=== PATIENT | female | born 1970 | race Caucasian/White ===

== ENCOUNTER 2016-11-13 15:50 | Emergency (ER) | payer OTHER ==
[~2016-11-13] VITALS: Ht 160 cm; Wt 99.8 kg
[2016-11-13] MEDS ORDERED: IV NORMAL SALINE 1000 ML BAG IV ONE (16:00)
[2016-11-13] MEDS ORDERED: HYDROMORPHONE 1 MG/1 ML DISP.SYRIN IV ONE ×2 (16:00→17:15)
[2016-11-13] MEDS ORDERED: ONDANSETRON 4 MG/2 ML VIAL IV ONE (16:00)
[2016-11-13] MEDS ORDERED: PANT20TA2 PO (16:02)
[2016-11-13] MEDS ORDERED: OMEP20CA10 PO (16:02)
[2016-11-13] MEDS ORDERED: ONDA4TAB5 PO (16:02)
[2016-11-13] MEDS ORDERED: VENL75TA4 PO (16:02)
[2016-11-13] MEDS ORDERED: HYDROMORPHONE 2 MG/1 ML DISP.SYRIN ONE (16:13)
[2016-11-13] MEDS ORDERED: ONDANSETRON 4 MG/2 ML VIAL ONE ×2 (16:14→17:27)
[2016-11-13 16:18] LABS: BASOPHILS # (AUTO) 0.1 K/uL (0.0-8.0); BASOPHILS % (AUTO) 1.4 % (0.0-2.0); EOSINOPHILS # (AUTO) 0.1 K/uL (0.0-0.7); HEMATOCRIT 31.5 % (37-47); HEMOGLOBIN 9.7 G/DL (12.0-16.0); LYMPHOCYTES # (AUTO) 2.3 K/UL (0.8-4.8); LYMPHOCYTES % (AUTO) 33.4 % (20.5-51.5); MEAN CORPUSCULAR HEMOGLOBIN 22.2 UUG (27.0-31.0); MEAN CORPUSCULAR HGB CONC 31 g/dL (32.0-37.0); MEAN CORPUSCULAR VOLUME 72.4 FL (81.0-99.0); MONOCYTES # (AUTO) 0.4 K/UL (0.1-1.30); MONOCYTES % (AUTO) 6.5 % (0.0-11.0); NEUTROPHILS % (AUTO) 56.7 % (38.5-71.5); PLATELET COUNT (AUTO) 262 K/UL (150-450); RED BLOOD CELL COUNT(AUTO) 4.36 MIL/UL (4.2-5.4); WHITE BLOOD COUNT (AUTO) 6.9 K/UL (4.0-11.2)
[2016-11-13 17:02] LABS: BILIRUBIN,TOTAL 0.6 mg/dL (0.1-1.0); POTASSIUM 3.2 mmol/L (3.5-5.1)
[2016-11-13 17:03] LABS: TOTAL PROTEIN, SERUM 7.7 g/dL (6.4-8.2)
[2016-11-13 17:05] LABS: BILIRUBIN,DIRECT 0.1 mg/dL (0.0-0.2)
[2016-11-13] MEDS ORDERED: ONDANSETRON IV *ER 4 MG/2 ML VIAL IV ONE (17:15)
[2016-11-13 17:26] VITALS: BP 116/78
[2016-11-13] MEDS ORDERED: HYDROMORPHONE 1 MG/1 ML DISP.SYRIN ONE (17:27)
--- NOTE | 2016-11-13 17:27 | NUR ---
IV removed. Catheter intact and site benign. Pressure and 4x4 gauze applied to site. No bleeding noted.
--- NOTE | 2016-11-13 17:27 | NUR ---
Patient discharged to home in stable conditon. Written and verbal after care instructions given. Patient verbalizes understanding of instructions.
[2016-11-13 17:58] LABS: BAND % (MANUAL) 2 % (0-10); LYMPHOCYTES % (MANUAL) 39 % (20-40); MONOCYTES % (MANUAL) 3 % (2-10); NEUTROPHILS % (MANUAL) 56 % (42-75)
== END 2016-11-13 17:27 | disposition home or self-care (01) ==
LOC: ER 15:50
DX: R10.9 Unspecified abdominal pain (principal); Z90.49 Acquired absence of other specified parts of digestive tract; Z88.0 Allergy status to penicillin; K21.9 Gastro-esophageal reflux disease without esophagitis; Z88.6 Allergy status to analgesic agent; Z88.8 Allergy status to other drugs, medicaments and biological substances
CPT/HCPCS: 80048; 80076; 83690; 84703; 85025; 96361; 96374 ×2; 96375; 96376; 99284; A4663; J1170 ×2; J2405 ×2

== ENCOUNTER 2018-04-12 14:07 | Inpatient (IN) | payer MEDICAID, OTHER ==
[~2018-04-12] VITALS: Ht 160 cm; Wt 95.3 kg
[~2018-04-12 14:07] MED LIST: OMEP20CA10 PO; ONDA4TAB5 PO; PANT20TA2 PO; VENL75TA4 PO
[2018-04-12] MEDS ORDERED: ONDANSETRON 4 MG/2 ML VIAL IV ONE (14:30)
[2018-04-12] MEDS ORDERED: IV NORMAL SALINE 1000 ML BAG IV ONE (14:30)
[2018-04-12] MEDS ORDERED: HYDROMORPHONE 1 MG/1 ML DISP.SYRIN IV ONE (14:30)
[2018-04-12] MEDS ORDERED: HYDROMORPHONE 2 MG/1 ML DISP.SYRIN ONE (14:46)
[2018-04-12] MEDS ORDERED: ONDANSETRON 4 MG/2 ML VIAL ONE (14:46)
[2018-04-12 14:56] LABS: BASOPHILS # (AUTO) 0.2 K/uL (0.0-8.0); BASOPHILS % (AUTO) 1.7 % (0.0-2.0); EOSINOPHILS # (AUTO) 0.2 K/uL (0.0-0.7); EOSINOPHILS % (AUTO) 1.8 % (0.0-7.0); HEMATOCRIT 29.6 % (31.2-41.9); HEMOGLOBIN 9.1 g/dL (10.9-14.3); LYMPHOCYTES # (AUTO) 2.4 K/uL (20.0-40.0); LYMPHOCYTES % (AUTO) 24.5 % (20.5-51.5); MEAN CORPUSCULAR HEMOGLOBIN 20.9 uug (24.7-32.8); MEAN CORPUSCULAR HGB CONC 31 g/dL (32.3-35.6); MEAN CORPUSCULAR VOLUME 67.6 fL (75.5-95.3); MONOCYTES # (AUTO) 0.4 K/uL (2.0-10.0); MONOCYTES % (AUTO) 4.5 % (0.0-11.0); NEUTROPHILS # (AUTO) 6.6 K/uL (1.8-8.9); NEUTROPHILS % (AUTO) 67.5 % (38.5-71.5); PLATELET COUNT (AUTO) 248 K/uL (179-408); RED BLOOD CELL COUNT(AUTO) 4.38 MIL/uL (3.63-4.92); WHITE BLOOD COUNT (AUTO) 9.7 K/uL (3.8-11.8)
[2018-04-12 14:57] LABS: CREATININE 0.9 mg/dL (0.6-1.3); POTASSIUM 3.7 mmol/L (3.5-5.1)
[2018-04-12 15:03] LABS: BILIRUBIN,DIRECT 0.1 mg/dL (0.0-0.2); BILIRUBIN,TOTAL 0.3 mg/dL (0.2-1.0); TOTAL PROTEIN, SERUM 8.1 g/dL (6.4-8.2)
[2018-04-12] MEDS ORDERED: LORA2TAB95 PO (16:06)
--- NOTE | 2018-04-12 16:27 | NUR ---
pt transfered to floor in stable condition.pt pain down to tolealable level at this point. pt not requesting pain med.
--- NOTE | 2018-04-12 16:30 | NUR ---
PATIENT BROUGHT TO THE 2ND FLOOR FROM ER. A/O*3, COOPERATIVE. FEW MIN LATER PATIENT THROW UP. IV INTACT R HAND 22 G. SAFETY REINFORCED.
[2018-04-12 16:40] VITALS: BP 105/57
[2018-04-12] MEDS ORDERED: ACETAMINOPHEN 325 MG TABLET PO PRN (17:15)
[2018-04-12] MEDS ORDERED: IV LACTATED RINGERS SOLUTION 1,000 ML IV SCH (17:15)
[2018-04-12] MEDS ORDERED: MAGNESIUM HYDROXIDE 30 ML LIQUID UDC PO PRN (17:15)
[2018-04-12] MEDS ORDERED: Z GUARD REMEDY PASTE 57 GM TUBE TOP PRN (17:15)
[2018-04-12] MEDS: DICYCLOMINE HCL 10 MG CAPSULE PO SCH (17:55)
[2018-04-12] MEDS: CULTURELLE CAPSULE PO SCH ×2 (17:55→21:54)
[2018-04-12] MEDS: HYDROMORPHONE 1 MG/1 ML DISP.SYRIN IV PRN ×2 (18:22→23:32)
--- NOTE | 2018-04-12 18:33 | NUR ---
END OF SHIFT PATIENT A/O *3, COOPERATIVE WITH TREATMENT, NO NASEA AFTER 1630 PM, COMPLAINED OF HEADACHE--> TYLENOL 650 WAS GIVEN AND EFFECTIVE, COMPLAINED OF PAIN 10/10 DILADED WAS GIVEN AND EFFECTIVE. NO DISTRESS AT THE MOMENT. SAFETY REINFORCED.
--- NOTE | 2018-04-12 19:45 | NUR ---
PATIENT IS AWAKE IN BED, AAOX4 DENIES PAIN/ NAUSEA/ANY DISTRESS ON ASSESSMENT. SAFETY MEASURES IN PLACE, CALL LIGHT LEFT WITHIN PATIENT'S REACH
[2018-04-12] MEDS: ONDANSETRON 4 MG/2 ML VIAL IV PRN (19:54)
[2018-04-12 20:00] VITALS: BP 101/52
[2018-04-13] MEDS: DICYCLOMINE HCL 10 MG CAPSULE PO SCH ×4 (00:09→18:36)
[2018-04-13 04:10] LABS: *BILIRUBIN,URIN NEGATIVE (NEGATIVE); *BLOOD, URINE NEGATIVE (NEGATIVE); *COLOR,URINE YELLOW (YELLOW); *KETONES,URINE TRACE (NEGATIVE); *UROBILINOGEN,URINE 0.2 E.U./dl (NORMAL); LEUKOCYTE ESTERASE ,URINE NEGATIVE (NEGATIVE); NITRITE, URINE NEGATIVE (NEGATIVE); UGLUCOSE NEGATIVE (NEGATIVE)
[2018-04-13 04:18] LABS: *CLARITY,URINE HAZY (CLEAR)
[2018-04-13] MEDS: HYDROMORPHONE 1 MG/1 ML DISP.SYRIN IV PRN ×5 (04:23→21:45)
[2018-04-13 04:24] LABS: RBC,URINE 0-3 /HPF (0-3); WBC,URINE 0-3 /HPF (0-3)
[2018-04-13 04:25] LABS: BACTERIA,URINE MODERATE /HPF (NONE SEEN); MUCUS,URINE MODERATE /LPF (0-FEW); SQUAMOUS EPITHELIAL CELL,UR MANY /HPF (NONE SEEN)
[2018-04-13 04:37] LABS: *AMPHETAMINE, URINE NEGATIVE (NEGATIVE); *BARBITURATE, URINE NEGATIVE (NEGATIVE); *CANNABINOID, URINE POSITIVE (NEGATIVE); *COCCAINE, URINE NEGATIVE (NEGATIVE); *OPIATE, URINE POSITIVE (NEGATIVE); *PHENCYCLIDINE SCREEN,URINE NEGATIVE (NEGATIVE)
[2018-04-13 04:45] VITALS: BP 137/84
--- NOTE | 2018-04-13 06:07 | NUR ---
PATIENT SLEPT WELL ON THIS SHIFT, PAIN MEDS GIVEN REQUESTED BY PATIENT. NO C/O PAIN OR ANY DISTRESS AT THIS TIME. NO FURTHER CHANGES IN STATUS
[2018-04-13 06:35] LABS: CREATININE 0.8 mg/dL (0.6-1.3); MAGNESIUM 1.6 mg/dL (1.8-2.4); PHOSPHOROUS 3.8 mg/dL (2.5-4.9); POTASSIUM 3.9 mmol/L (3.5-5.1)
[2018-04-13 06:53] LABS: BASOPHILS % (AUTO) 0.6 % (0.0-2.0); EOSINOPHILS # (AUTO) 0.2 K/uL (0.0-0.7); EOSINOPHILS % (AUTO) 2.1 % (0.0-7.0); HEMATOCRIT 25.8 % (31.2-41.9); LYMPHOCYTES # (AUTO) 2.8 K/uL (20.0-40.0); LYMPHOCYTES % (AUTO) 36.8 % (20.5-51.5); MEAN CORPUSCULAR HGB CONC 31 g/dL (32.3-35.6); MEAN CORPUSCULAR VOLUME 67.8 fL (75.5-95.3); MONOCYTES # (AUTO) 0.5 K/uL (2.0-10.0); NEUTROPHILS # (AUTO) 4.1 K/uL (1.8-8.9); NEUTROPHILS % (AUTO) 54.5 % (38.5-71.5); PLATELET COUNT (AUTO) 201 K/uL (179-408); WHITE BLOOD COUNT (AUTO) 7.6 K/uL (3.8-11.8)
--- NOTE | 2018-04-13 07:00 | NUR ---
Patient is resting in bed, no distress at the moment, patient complained of pain 3-4 but manageable at the moment. IV R hand intact saline lock. Safety reinforced.
[2018-04-13 07:48] LABS: THYROID STIMULATING HORMONE 1.436 mIU/mL (0.358-3.740)
[2018-04-13 08:15] LABS: NEUTROPHILS % (MANUAL) 55 % (42-75)
[2018-04-13 08:16] LABS: LYMPHOCYTES % (MANUAL) 41 % (20-40); MONOCYTES % (MANUAL) 4 % (2-10)
[2018-04-13] MEDS: PANTOPRAZOLE SODIUM 40 MG VIAL IV SCH ×2 (08:32→20:14)
[2018-04-13] MEDS: CULTURELLE CAPSULE PO SCH ×2 (08:32→20:14)
[2018-04-13] MEDS: ONDANSETRON 4 MG/2 ML VIAL IV PRN (09:34)
[2018-04-13] MEDS: MAGNESIUM SULFATE/D5W 100 ML IV SCH ×2 (11:17→12:45)
[2018-04-13 11:20] VITALS: BP 118/66
[2018-04-13 15:11] VITALS: BP 104/60
--- NOTE | 2018-04-13 19:16 | NUR ---
eND OF SHIFT Patient is resting walking around the unit, no distress at the moment, patient complained of pain and medications were given per orders. Mg was replaced with 2 bags today. IV R hand infiltrated and was restarted on the RAC. Safety reinforced.
--- NOTE | 2018-04-13 19:20 | NUR ---
RECEIVED PT AWAKE, ALERT , AND ORIENTEDX4. PT SHOWS NO SIGNS OF DISTRESS. IV INTACT. CALL LIGHT WITHIN REACH. SAFETY AND COMFORT PROVIDED. WILL CONTINUE TO MONITOR.
[2018-04-13 20:02] VITALS: BP 116/78
[2018-04-13] MEDS: AMITRIPTYLINE HCL 50 MG TABLET PO SCH (20:22)
--- NOTE | 2018-04-13 22:00 | NUR ---
AT 2145H PT WAS GIVEN DILAUDID FOR 1010 PAIN SCALE OF HER ABDOMEN. PT TOLERATED IT WELL. SAFETY AND COMFORT PROVIDED. WILL CONTINUE TO MONITOR.
[2018-04-14] MEDS: DICYCLOMINE HCL 10 MG CAPSULE PO SCH ×5 (00:03→23:10)
[2018-04-14] MEDS: HYDROMORPHONE 1 MG/1 ML DISP.SYRIN IV PRN ×6 (02:20→23:10)
[2018-04-14] MEDS: ONDANSETRON 4 MG/2 ML VIAL IV PRN ×2 (02:20→20:05)
[2018-04-14 04:48] VITALS: BP 95/52
--- NOTE | 2018-04-14 06:22 | NUR ---
PT SLEPT THROUGHOUT THE SHIFT. PT SHOWS NO SIGNS OF ACUTE DISTRESS. PT AFEBRILE. VITAL SIGNS WITHIN NORMAL LIMIT. PRESCRIBED MEDICATION GIVEN AND PT TOLERATED IT WELL. PT GIVEN DILAUDID AT 2215H, 0220H AND 0551H. PT TOLERATED IT WELL. SAFETY AND COMFORT PROVIDED. WILL ENDORSE ACCORDINGLY TO INCOMING NURSE FOR CONTINUITY OF CARE.
[2018-04-14 06:44] LABS: CREATININE 0.8 mg/dL (0.6-1.3); MAGNESIUM 2.1 mg/dL (1.8-2.4); PHOSPHOROUS 4.2 mg/dL (2.5-4.9); POTASSIUM 3.5 mmol/L (3.5-5.1)
--- NOTE | 2018-04-14 07:00 | NUR ---
RECEIVED PT AWAKE, A/OX4. PT SHOWS NO SIGNS OF DISTRESS. IV INTACT. CALL LIGHT WITHIN REACH. SAFETY AND COMFORT PROVIDED. WILL CONTINUE TO MONITOR.
[2018-04-14 07:04] LABS: BASOPHILS % (AUTO) 0.6 % (0.0-2.0); EOSINOPHILS # (AUTO) 0.3 K/uL (0.0-0.7); EOSINOPHILS % (AUTO) 3.4 % (0.0-7.0); HEMATOCRIT 25.7 % (31.2-41.9); LYMPHOCYTES # (AUTO) 3.5 K/uL (20.0-40.0); LYMPHOCYTES % (AUTO) 46.3 % (20.5-51.5); MEAN CORPUSCULAR HEMOGLOBIN 21.1 uug (24.7-32.8); MEAN CORPUSCULAR HGB CONC 31 g/dL (32.3-35.6); MONOCYTES # (AUTO) 0.5 K/uL (2.0-10.0); NEUTROPHILS # (AUTO) 3.3 K/uL (1.8-8.9); NEUTROPHILS % (AUTO) 42.7 % (38.5-71.5); PLATELET COUNT (AUTO) 205 K/uL (179-408); RED BLOOD CELL COUNT(AUTO) 3.78 MIL/uL (3.63-4.92); WHITE BLOOD COUNT (AUTO) 7.6 K/uL (3.8-11.8)
[2018-04-14] MEDS: PANTOPRAZOLE SODIUM 40 MG VIAL IV SCH (08:14)
[2018-04-14] MEDS: CULTURELLE CAPSULE PO SCH ×2 (08:14→20:36)
[2018-04-14 10:43] LABS: BASOPHILS % (MANUAL) 1 % (0-2); EOSINOPHILS % (MANUAL) 7 % (0-8); LYMPHOCYTES % (MANUAL) 46 % (20-40); MONOCYTES % (MANUAL) 4 % (2-10); NEUTROPHILS % (MANUAL) 42 % (42-75)
[2018-04-14 11:21] LABS: *BILIRUBIN,URIN NEGATIVE (NEGATIVE); *BLOOD, URINE Trace-intact (NEGATIVE); *CLARITY,URINE SLIGHTLY CLOUDY (CLEAR); *COLOR,URINE YELLOW (YELLOW); *KETONES,URINE 1+ (NEGATIVE); *UROBILINOGEN,URINE 0.2 E.U./dl (NORMAL); LEUKOCYTE ESTERASE ,URINE NEGATIVE (NEGATIVE); NITRITE, URINE NEGATIVE (NEGATIVE); UGLUCOSE NEGATIVE (NEGATIVE)
[2018-04-14 11:43] LABS: BACTERIA,URINE MODERATE /HPF (NONE SEEN); SQUAMOUS EPITHELIAL CELL,UR MODERATE /HPF (NONE SEEN)
[2018-04-14 11:44] LABS: MUCUS,URINE MANY /LPF (0-FEW)
[2018-04-14 11:50] VITALS: BP 106/60
--- NOTE | 2018-04-14 12:50 | NUR ---
MIDLINE INSERTION BY RN NO PAIN, NO CONCERNS, NO BLEEDING, FLUSHED EASY.
[2018-04-14 16:04] VITALS: BP 140/77
[2018-04-14] MEDS: PANTOPRAZOLE SODIUM 40 MG TABLET.DR PO SCH (17:08)
--- NOTE | 2018-04-14 18:49 | NUR ---
END OF SHIFT PATIENT AWAKE, A/OX4. PATIENT SHOWS NO SIGNS OF DISTRESS. MIDLINE IS INTACT. PATIENT RECEIVED DILADED FOR PAIN NEEDED, WAS EFFECTIVE. CONSENT IS SIGNED FOR TOMORROW MRI, NPO AFTER MIDNIGHT IS ORDERED EXCEPT MEDS. CALL LIGHT WITHIN REACH. SAFETY AND COMFORT PROVIDED. WILL CONTINUE TO MONITOR.
[2018-04-14 19:59] VITALS: BP 101/66
[2018-04-14] MEDS: AMITRIPTYLINE HCL 50 MG TABLET PO SCH (20:36)
[2018-04-14] MEDS: ATORVASTATIN 10 MG TABLET PO SCH (20:36)
[2018-04-14] MEDS: LORAZEPAM 2 MG/1 ML VIAL IV PRN (23:10)
[2018-04-15] MEDS: HYDROMORPHONE 1 MG/1 ML DISP.SYRIN IV PRN ×7 (02:08→23:19)
[2018-04-15 04:29] VITALS: BP 110/76
[2018-04-15] MEDS: DICYCLOMINE HCL 10 MG CAPSULE PO SCH ×3 (05:51→18:37)
[2018-04-15] MEDS: PANTOPRAZOLE SODIUM 40 MG TABLET.DR PO SCH ×2 (05:51→17:00)
[2018-04-15 07:12] LABS: BASOPHILS # (AUTO) 0.2 K/uL (0.0-8.0); BASOPHILS % (AUTO) 2.5 % (0.0-2.0); EOSINOPHILS # (AUTO) 0.4 K/uL (0.0-0.7); EOSINOPHILS % (AUTO) 5.7 % (0.0-7.0); HEMATOCRIT 26.3 % (31.2-41.9); HEMOGLOBIN 8.1 g/dL (10.9-14.3); LYMPHOCYTES # (AUTO) 3.5 K/uL (20.0-40.0); LYMPHOCYTES % (AUTO) 46.1 % (20.5-51.5); MEAN CORPUSCULAR HEMOGLOBIN 20.9 uug (24.7-32.8); MEAN CORPUSCULAR HGB CONC 31 g/dL (32.3-35.6); MEAN CORPUSCULAR VOLUME 67.8 fL (75.5-95.3); MONOCYTES # (AUTO) 0.4 K/uL (2.0-10.0); MONOCYTES % (AUTO) 5.4 % (0.0-11.0); NEUTROPHILS # (AUTO) 3.1 K/uL (1.8-8.9); NEUTROPHILS % (AUTO) 40.3 % (38.5-71.5); PLATELET COUNT (AUTO) 200 K/uL (179-408); RED BLOOD CELL COUNT(AUTO) 3.87 MIL/uL (3.63-4.92); WHITE BLOOD COUNT (AUTO) 7.6 K/uL (3.8-11.8)
[2018-04-15] MEDS: CULTURELLE CAPSULE PO SCH ×2 (08:18→21:46)
[2018-04-15] MEDS: LORAZEPAM 2 MG/1 ML VIAL IV PRN (08:18)
[2018-04-15 08:30] LABS: CREATININE 0.9 mg/dL (0.6-1.3); MAGNESIUM 1.8 mg/dL (1.8-2.4); PHOSPHOROUS 4.7 mg/dL (2.5-4.9)
--- NOTE | 2018-04-15 08:44 | NUR ---
PATIENT IS GOING TO MRI BY AMBULANCE, ATIVAN*1 WAS GIVEN PRIOR PER REQUEST, VS BP118/64, HR 70, RR18, O2100. A/O *4, NO DISTRESS.
--- NOTE | 2018-04-15 10:15 | NUR ---
PATIENT IS BACK FROM MRI, NO DISTRESS, COMPLAINING OF ABD PAIN WILL TREAT PER ORDERS, VS:112/79, HR 95, T 98.2 , RR18, O2 100. SAFETY REINFORCED.
[2018-04-15] MEDS ORDERED: GADODIAMIDE 5 MMOL/10 ML VIAL ONE (10:17)
[2018-04-15 10:44] LABS: EOSINOPHILS % (MANUAL) 1 % (0-8); LYMPHOCYTES % (MANUAL) 59 % (20-40); MONOCYTES % (MANUAL) 2 % (2-10); NEUTROPHILS % (MANUAL) 38 % (42-75)
[2018-04-15 11:55] VITALS: BP 112/69
[2018-04-15 15:10] VITALS: BP 91/45
--- NOTE | 2018-04-15 19:00 | NUR ---
PATIENT IS RESTING IN BE AT THE MOMENT, NO DISTRESS, A/O*4, COOPERATIVE WITH TREATMENT, RECEIVED DILAUDID FOR PAIN AND WAS EFFECTIVE, WAS SEEN BY GI SPECIALIST, ALSO SURGEON WANTED TO SEE HER THIS AM BUT PATIENT LEFT FOR MRI. ORDERS CARED OUT THROUGH OUT THE SHIFT, SAFETY REINFORCED.
--- NOTE | 2018-04-15 19:45 | NUR ---
RECEIVED PATIENT IN BED, NO SOB NO CHEST PAIN, CONT ON PAIN MANAGEMENT OF ABDOMINAL PAIN. PATIENT SEEN BY GI MD, WITH NO FURTHER ORDER AT THIS TIME. PATIENT TOLERATE DIET, VOIDING, AND MOVING HER BOWEL. CONT TO MONITOR.
[2018-04-15] MEDS: ONDANSETRON 4 MG/2 ML VIAL IV PRN (20:03)
[2018-04-15 21:40] VITALS: BP 115/71
[2018-04-15] MEDS: ATORVASTATIN 10 MG TABLET PO SCH (21:46)
[2018-04-15] MEDS: AMITRIPTYLINE HCL 50 MG TABLET PO SCH (21:46)
[2018-04-16] MEDS: DICYCLOMINE HCL 10 MG CAPSULE PO SCH ×3 (00:15→12:08)
[2018-04-16] MEDS: HYDROMORPHONE 1 MG/1 ML DISP.SYRIN IV PRN ×4 (02:43→13:10)
--- NOTE | 2018-04-16 06:13 | NUR ---
PATIENT SLEPT MOST PART OF THE NIGHT, NO SOB NO CHEST PAIN, CONT ON PAIN MANAGEMENT DUE TO ABDOMINAL PAIN, PATIENT VOIDING FREELY, AND BOWEL ARE MOVING.. ATTENDS ALL NEEDS, CALL LIGHTS WITHIN REACH.
[2018-04-16 06:30] VITALS: BP 122/69
[2018-04-16] MEDS: PANTOPRAZOLE SODIUM 40 MG TABLET.DR PO SCH (06:47)
--- NOTE | 2018-04-16 07:00 | NUR ---
RECEIVED PT AWAKE, A/OX4. PT SHOWS NO SIGNS OF DISTRESS. IV INTACT. CALL LIGHT WITHIN REACH. SAFETY AND COMFORT PROVIDED. ABD PAIN WILL BE MANAGED PER ORDERS. WILL CONTINUE TO MONITOR.
[2018-04-16 07:53] LABS: BASOPHILS # (AUTO) 0.2 K/uL (0.0-8.0); BASOPHILS % (AUTO) 1.9 % (0.0-2.0); EOSINOPHILS # (AUTO) 0.5 K/uL (0.0-0.7); EOSINOPHILS % (AUTO) 5.3 % (0.0-7.0); HEMATOCRIT 27.6 % (31.2-41.9); HEMOGLOBIN 8.6 g/dL (10.9-14.3); LYMPHOCYTES # (AUTO) 3.4 K/uL (20.0-40.0); LYMPHOCYTES % (AUTO) 38.2 % (20.5-51.5); MEAN CORPUSCULAR HEMOGLOBIN 21.3 uug (24.7-32.8); MEAN CORPUSCULAR HGB CONC 31 g/dL (32.3-35.6); MEAN CORPUSCULAR VOLUME 67.8 fL (75.5-95.3); MONOCYTES # (AUTO) 0.7 K/uL (2.0-10.0); MONOCYTES % (AUTO) 7.8 % (0.0-11.0); NEUTROPHILS # (AUTO) 4.2 K/uL (1.8-8.9); NEUTROPHILS % (AUTO) 46.8 % (38.5-71.5); RED BLOOD CELL COUNT(AUTO) 4.06 MIL/uL (3.63-4.92); WHITE BLOOD COUNT (AUTO) 8.9 K/uL (3.8-11.8)
[2018-04-16 07:56] LABS: CREATININE 0.9 mg/dL (0.6-1.3); MAGNESIUM 1.7 mg/dL (1.8-2.4); POTASSIUM 4.1 mmol/L (3.5-5.1)
[2018-04-16 08:09] LABS: PLATELET COUNT (AUTO) 196 K/uL (179-408)
[2018-04-16 08:12] LABS: EOSINOPHILS % (MANUAL) 5 % (0-8); LYMPHOCYTES % (MANUAL) 42 % (20-40); MONOCYTES % (MANUAL) 7 % (2-10); NEUTROPHILS % (MANUAL) 46 % (42-75)
[2018-04-16] MEDS: CULTURELLE CAPSULE PO SCH (09:03)
[2018-04-16] MEDS: ONDANSETRON 4 MG/2 ML VIAL IV PRN (10:08)
[2018-04-16 11:45] VITALS: BP 112/69
[2018-04-16] MEDS ORDERED: MAGNESIUM OXIDE 400 MG TABLET PO ONE (12:30)
[2018-04-16] MEDS ORDERED: DOCU-141 PO (13:17)
[2018-04-16] MEDS ORDERED: DICY10CA21 PO (13:17)
[2018-04-16] MEDS ORDERED: ATOR10TA PO (13:17)
[2018-04-16] MEDS ORDERED: AMIT50TA17 PO (13:17)
--- NOTE | 2018-04-16 14:45 | NUR ---
PATIENT IS DISCHARGED, PAPERS GIVEN AND SIGNED, ON PAGE DIDNT PRINT OUT FOR SIGNATURE AND [place] NOTIFIED. PATIENT IS STABLE, HAS A RIDE HOME WITH HER BOYFRIEND. ESCORTED DOWNSTAIRS.
== END 2018-04-16 14:50 | disposition home or self-care (01) | DRG 282 ==
LOC: ER 14:08 → MED 16:18
PROVIDERS: ADMIT Hospitalist; ATTEND Hospitalist
PROC: 05HY33Z Insertion of Infusion Device into Upper Vein, Percutaneous Approach (ICD-10-PCS; principal; 2018-04-14)
DX: K85.90 Acute pancreatitis without necrosis or infection, unspecified (principal); E66.01 Morbid (severe) obesity due to excess calories; E83.42 Hypomagnesemia; K31.84 Gastroparesis; Q43.3 Congenital malformations of intestinal fixation; K31.89 Other diseases of stomach and duodenum; R11.2 Nausea with vomiting, unspecified; T40.7X5A Adverse effect of cannabis (derivatives), initial encounter; Y92.019 Unspecified place in single-family (private) house as the place of occurrence of the external cause; Z68.37 Body mass index [BMI] 37.0-37.9, adult; Z71.3 Dietary counseling and surveillance; K21.9 Gastro-esophageal reflux disease without esophagitis; Z90.49 Acquired absence of other specified parts of digestive tract; Z83.3 Family history of diabetes mellitus; Z82.49 Family history of ischemic heart disease and other diseases of the circulatory system; Z87.891 Personal history of nicotine dependence; D50.9 Iron deficiency anemia, unspecified; E78.5 Hyperlipidemia, unspecified; Z87.11 Personal history of peptic ulcer disease
CPT/HCPCS: 36415; 36569; 70030-TC; 71045; 80307; 83605; 83690; 83735; 84100; 84443; 85025; 85730; 87086; A4663; A9579; C9113; G0378; J1170; J2060; J2405; J3475; J7030; J7040; J7120

== ENCOUNTER 2018-08-19 14:34 | Emergency (ER) | payer MEDICAID ==
[~2018-08-19] VITALS: Ht 160 cm; Wt 86.2 kg
[~2018-08-19 14:34] MED LIST changes: +AMIT50TA17 PO; +ATOR10TA PO; +DICY10CA21 PO; +DOCU-141 PO; +LORA2TAB95 PO; -OMEP20CA10 PO; -VENL75TA4 PO
--- NOTE | 2018-08-19 14:43 | NUR ---
in room 2a.c/o severe abdominal pain left lower quadrant radiating to epigastric region.
[2018-08-19] MEDS ORDERED: HYDROMORPHONE 1 MG/1 ML DISP.SYRIN IV ONE (15:15)
[2018-08-19] MEDS ORDERED: IV NORMAL SALINE 1000 ML BAG IV ONE (15:15)
[2018-08-19] MEDS ORDERED: ONDANSETRON 4 MG/2 ML VIAL IV ONE (15:15)
--- NOTE | 2018-08-19 15:15 | NUR ---
attempted IV insert, unsuccessful
--- NOTE | 2018-08-19 15:15 | NUR ---
seen by Dr Cherry.
[2018-08-19] MEDS ORDERED: ONDANSETRON 4 MG/2 ML VIAL ONE (15:16)
[2018-08-19] MEDS ORDERED: HYDROMORPHONE 1 MG/1 ML DISP.SYRIN ONE (15:32)
--- NOTE | 2018-08-19 15:36 | NUR ---
IV NS started. medicated with zofran and dilaudid IV
[2018-08-19 16:35] VITALS: BP 118/60
--- NOTE | 2018-08-19 16:36 | NUR ---
reassessed by dr rico. exit care given. discharged
== END 2018-08-19 16:37 | disposition home or self-care (01) ==
LOC: ER 14:34
DX: G89.29 Other chronic pain (principal); R10.13 Epigastric pain; R11.10 Vomiting, unspecified; R10.12 Left upper quadrant pain; R10.32 Left lower quadrant pain; K21.9 Gastro-esophageal reflux disease without esophagitis; F12.10 Cannabis abuse, uncomplicated; Z90.49 Acquired absence of other specified parts of digestive tract; Z88.0 Allergy status to penicillin; Z88.6 Allergy status to analgesic agent; Z88.5 Allergy status to narcotic agent; Z88.8 Allergy status to other drugs, medicaments and biological substances; Z79.899 Other long term (current) drug therapy
CPT/HCPCS: 36415; 84702; 96361; 96374; 96375; 99283; J1170; J2405; A4663; J7030

== ENCOUNTER 2018-08-20 16:41 | Emergency (ER) | payer MEDICAID ==
[~2018-08-20] VITALS: Ht 165.1 cm; Wt 99.8 kg
[2018-08-20] MEDS ORDERED: HYDROMORPHONE 1 MG/1 ML DISP.SYRIN ONE (17:11)
[2018-08-20] MEDS ORDERED: ONDANSETRON 4 MG/2 ML VIAL ONE ×2 (17:11→18:21)
[2018-08-20] MEDS ORDERED: ONDANSETRON ODT 4 MG TAB.RAPDIS SL ONE (17:15)
[2018-08-20] MEDS ORDERED: HYDROMORPHONE 1 MG/1 ML DISP.SYRIN IM ONE (17:15)
[2018-08-20] MEDS ORDERED: IV NORMAL SALINE 1000 ML BAG IV ONE (17:45)
[2018-08-20] MEDS ORDERED: FAMOTIDINE. 20 MG/2 ML VIAL IV ONE ×2 (17:45→18:21)
[2018-08-20] MEDS ORDERED: ONDANSETRON 4 MG/2 ML VIAL IV ONE ×2 (17:45→18:45)
[2018-08-20] MEDS ORDERED: HYDROMORPHONE 1 MG/1 ML DISP.SYRIN IV ONE (18:45)
[2018-08-20] MEDS ORDERED: HYDROMORPHONE 2 MG/1 ML DISP.SYRIN ONE (18:47)
[2018-08-20] MEDS ORDERED: ONDANSETRON ODT 4 MG TAB.RAPDIS ONE (18:55)
--- NOTE | 2018-08-20 19:00 | NUR ---
PT IS IN ROOM #2B. DR ROCA EVALUATED THE PT. 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
[2018-08-20 19:39] LABS: BASOPHILS % (AUTO) 0.4 % (0.0-2.0); EOSINOPHILS # (AUTO) 0.2 K/uL (0.0-0.7); EOSINOPHILS % (AUTO) 2.1 % (0.0-7.0); HEMATOCRIT 27.7 % (31.2-41.9); HEMOGLOBIN 8.6 g/dL (10.9-14.3); LYMPHOCYTES # (AUTO) 1.5 K/uL (20.0-40.0); LYMPHOCYTES % (AUTO) 16.5 % (20.5-51.5); MEAN CORPUSCULAR HEMOGLOBIN 20.6 uug (24.7-32.8); MEAN CORPUSCULAR HGB CONC 31 g/dL (32.3-35.6); MEAN CORPUSCULAR VOLUME 66.7 fL (75.5-95.3); MONOCYTES # (AUTO) 0.3 K/uL (2.0-10.0); MONOCYTES % (AUTO) 3.5 % (0.0-11.0); NEUTROPHILS # (AUTO) 7.2 K/uL (1.8-8.9); NEUTROPHILS % (AUTO) 77.5 % (38.5-71.5); PLATELET COUNT (AUTO) 231 K/uL (179-408); RED BLOOD CELL COUNT(AUTO) 4.15 MIL/uL (3.63-4.92); WHITE BLOOD COUNT (AUTO) 9.3 K/uL (3.8-11.8)
[2018-08-20 19:47] LABS: CREATININE 0.9 mg/dL (0.6-1.3); POTASSIUM 3.7 mmol/L (3.5-5.1)
[2018-08-20 19:53] LABS: BILIRUBIN,DIRECT 0.1 mg/dL (0.0-0.2); BILIRUBIN,TOTAL 0.4 mg/dL (0.2-1.0); TOTAL PROTEIN, SERUM 7.5 g/dL (6.4-8.2)
--- NOTE | 2018-08-20 20:31 | NUR ---
PATIENT ABLE TO TOLERATE PO FLUID WITHNO N/V
--- NOTE | 2018-08-20 20:36 | NUR ---
IV removed. Catheter intact and site benign. Pressure and 4x4 gauze applied to site. No bleeding noted.
[2018-08-20 20:38] VITALS: BP 135/82
--- NOTE | 2018-08-20 20:38 | NUR ---
Patient discharged to home in stable conditon. Written and verbal after care instructions given. Patient verbalizes understanding of instructions.
== END 2018-08-20 20:40 | disposition other institution (70) ==
LOC: ER 16:43
DX: K85.90 Acute pancreatitis without necrosis or infection, unspecified (principal); F12.10 Cannabis abuse, uncomplicated; Z90.49 Acquired absence of other specified parts of digestive tract; Z88.0 Allergy status to penicillin; Z88.8 Allergy status to other drugs, medicaments and biological substances; Z91.013 Allergy to seafood; Z79.899 Other long term (current) drug therapy
CPT/HCPCS: 36415; 80048; 80076; 83690; 85025; 96361; 96372; 96374; 96375; 96376; 99283; J1170 ×2; J2405 ×2; J3490; A4663; J7030; Q0162